=== PATIENT | male | born 1990 | race Caucasian/White ===

== ENCOUNTER 2016-12-20 15:53 | Emergency (ER) | payer OTHER ==
[~2016-12-20] VITALS: Ht 180.3 cm; Wt 77.1 kg
--- NOTE | 2016-12-20 18:10 | ED GENERAL ADULT ---
History of Present Illness General Chief Complaint: General Adult Stated Complaint: ELEVATED BP PER PT Source: patient Exam Limitations: no limitations Vital Signs & Intake/Output Vital Signs & Intake/Output Vital Signs Date Time Temp Pulse Resp B/P Pulse O2 O2 Flow FiO2 Ox Delivery Rate 12/20 1600 98.0 84 20 143/92 100 Room Air Allergies Coded Allergies: No Known Allergies (12/20/16) Triage Note: PT TO ED C/O WEAKNESS, HEADACHE, ANXIETY X 1 WEEK. STATES HE CHECKED HIS BP IN HIS LEGS AT WORK AND IT WAS 200/160. ALSO STATES "I CAN BARELY FEEL THE PULSE IN MY LEFT LEG". HAS APPT ON 12/23 WITH HIS PCP BUT COULDN'T WAIT. CURRENT BP IN RIGHT ARM 143/92. Triage Nurses Notes Reviewed? yes Onset: Abrupt Duration: day(s):, constant Timing: recent history Injury Environment: home Severity: moderate, severe No Modifying Factors: none HPI: 26-year-old male comes into the emergency room with multiple complaints. Patient reports that for couple years he's been experiencing pain in his lower legs in the calfs bilaterally. Pain is worse with any type of walking. Patient reports that he has had increased pain in his feet and legs bilaterally. Patient reports he's been getting associated numbness in his feet bilaterally. Patient reports that she's also been having headaches recently with some ringing in his left ear. Patient reports that he feels like his vision is staticy. Patient reports that he saw the eye doctor the other day but everything was fine. Patient has an appointment with his primary care this Monday. Patient came in is because he was concerned about the worsening pain and numbness in his feet bilaterally. Patient reports that his feet get cold. Patient reports that his father has some type of genetic disorder that puts them at increased risk for stroke. Patient denies any chest pain or shortness of breath. The symptoms of lower extremities is been a chronic issue for years but got worse this past week which is why he came into the emergency room for further evaluation. Patient reports that he has had chronic pain in his left lateral thigh since he was 13 years old. (NELSY SPENCER) Past History Travel History Traveled to [place] past 21 day No Medical History Any Pertinent Medical History? none Surgical History Surgical History: non-contributory Psychosocial History What is your primary language Polish Tobacco Use: Never used ETOH Use: denies use Illicit Drug Use: marijuana Family History Hx Contributory? No (NELSY SPENCER) Review of Systems Review of Systems Constitutional: Reports: no symptoms. EENTM: Reports: no symptoms. Respiratory: Reports: no symptoms. Cardiovascular: Reports: no symptoms. GI: Reports: no symptoms. Genitourinary: Reports: no symptoms. Musculoskeletal: Reports: see HPI. Skin: Reports: no symptoms. Neurological/Psychological: Reports: see HPI. Hematologic/Endocrine: Reports: no symptoms. Immunologic/Allergic: Reports: no symptoms. All Other Systems: Reviewed and Negative (NELSY SPENCER) Physical Exam Physical Exam General Appearance: well developed/nourished, no apparent distress, alert Head: atraumatic, normal appearance Eyes: Bilateral: normal appearance, PERRL, EOMI. Ears, Nose, Throat: normal pharynx, normal ENT inspection, hearing grossly normal Neck: normal inspection, supple, full range of motion Respiratory: normal breath sounds, chest non-tender, no respiratory distress Cardiovascular: regular rate/rhythm Gastrointestinal: normal bowel sounds, soft Back: normal inspection Extremities: normal inspection, normal range of motion, dorsalis pedis 2+ bilaterally, posterior tibialis 1+ bilaterally, cap refill less than 2 seconds, motor strength intact Neurologic/Psych: no motor/sensory deficits, awake, alert, oriented x 3, normal gait, normal mood/affect, 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 No CVA/TIA Diagnosis: No Severe Sepsis Present: No Septic Shock Present: No (NELSY SPENCER) Progress Differential Diagnoses I considered the following diagnoses in my evaluation of the patient: Arterial occlusion, venous stasis, peripheral neuropathy, myalgia paresthetica, lumbar herniated disc, migraine headache, intracranial bleed, subarachnoid hemorrhage, tension headache, cluster headache, autoimmune disorder, genetic disease, peripheral vascular disease, electrolyte abnormality, Plan of Care: Orders Procedure Date/time Status MAGNESIUM 12/20 1802 Complete COMPREHENSIVE METABOLIC PANEL 12/20 1802 Complete CBC WITHOUT DIFFERENTIAL 12/20 1802 Complete Laboratory Tests 12/20/16 1837: Anion Gap 9, Estimated GFR > 60, BUN/Creatinine Ratio 15.0, Glucose 88, Calcium 9.3, Magnesium 1.8, Total Bilirubin 0.8, AST 25, ALT 39, Alkaline Phosphatase 62 , Total Protein 7.4, Albumin 4.4, Globulin 3.0, Albumin/Globulin Ratio 1.5, CBC w Diff NO MAN DIFF REQ, RBC 4.86, MCV 85.6, MCH 29.0, RDW 13.2, MPV 7.8, Gran % 59.8, Lymphocytes % 30.6, Monocytes % 7.5, Eosinophils % 1.5, Basophils % 0.6, Absolute Granulocytes 4.5, Absolute Lymphocytes 2.3, Absolute Monocytes 0.6, Absolute Eosinophils 0.1, Absolute Basophils 0, PUBS MCHC 33.9 Initial ED EKG: none (IVON HOLLINS,NELSY) Departure Departure Disposition: HOME OR SELF CARE Condition: Stable Clinical Impression Primary Impression: Bilateral leg pain Secondary Impressions: Headache Referrals: EVANS PERALTA,PERFECTO LORENZO MD,ORALIA Orourke (PCP/Family) SAMUEL JORDAN MD Additional Instructions: Follow-up with vascular doctor and neurologist provided. Return to emergency room immediately if any other concerns worsening symptoms. You will require nerve conduction study of the lower extremities as well as arterial Dopplers at some point if symptoms persist. Please return immediately if any concerns worsening symptoms. Please go over all results of today's visit with your primary care doctor. Contact your primary care doctor to let them know you were here in the emergency room. There may be nonspecific findings which may not be related to your visit today here in the emergency room but may require further evaluation and chronic monitoring by your primary care doctor. If you had a laceration today the chance of foreign body always remains. You should follow-up with your primary care doctor for recheck in 3-5 days for a wound check. If you had an x-ray done there is a chance that a fracture could have been missed on initial read and you should follow-up with your primary care doctor for repeat x-rays if symptoms persist. If your blood pressure was elevated here in the emergency room please have rechecked by her primary care doctor within the next 48 hours by your primary care doctor. If you were prescribed a narcotic here in the emergency room or any type of controlled substances you're not allowed to drive while taking this medication or operate any type of heavy machinery. Narcotics can make you feel lightheaded dizziness nausea and can cause constipation. You may need to greens picker a stool softener. Thank you for choosing [facility] emergency room. Please return to the emergency room immediately if you have any other concerns worsening of symptoms. Departure Forms: Customer Survey General Discharge Information Comments 12/20/2016 7:26:04 PM Patient has multiple complaints here in the emergency room. I offered him a full evaluation which would include CT scan of head and peripheral artery Dopplers and lower extremities as well as blood work. I explained to the patient at this time I do not feel it is emergent that the patient have a doctor but offered it as a further evaluation tonight. Follow-up with vascular doctor and neurologist provided as well as his primary care doctor for further testing. Patient is to return immediately if any concerns worsening symptoms. Patient has clinically look well and is in no apparent distress here in the emergency room. Normal neurological exam. Patient understands everything has been explained to him. (NELSY SPENCER) PA/SLIP BOX CHANGER Co-Sign Statement Statement: ED Attending supervision documentation- [] I saw and evaluated the patient. I have also reviewed all the pertinent lab results and diagnostic results. I agree with the findings and the plan of care as documented in the PA's/SLIP BOX CHANGER's documentation. x I have reviewed the ED Record and agree with the PA's/SLIP BOX CHANGER's documentation. [] Additions or exceptions (if any) to the PAs/SLIP BOX CHANGER's note and plan are summarized below: [] (ODELL PERALTA,BERTRAND) Critical Care Note Critical Care Note Critical Care Time: non-applicable (NELSY SPENCER)
[2016-12-20 18:45] LABS: ABSOLUTE BASOPHIL COUNT 0 /CUMM (0.0-0.2); ABSOLUTE EOSINOPHIL COUNT 0.1 /CUMM (0.0-0.7); ABSOLUTE GRANULOCYTE CT 4.5 /CUMM (1.4-6.5); ABSOLUTE LYMPH COUNT 2.3 /CUMM (1.2-3.4); ABSOLUTE MONOCYTE COUNT 0.6 /CUMM (0.10-0.60); BASOPHIL % 0.6 % (0.0-2.0); EOSINOPHIL % 1.5 % (0-5); GRANULOCYTE % 59.8 % (42.2-75.2); HEMATOCRIT 41.6 % (42-52); MEAN CORPUSCULAR HGB CONC 33.9 G/DL (33.0-37.0); MEAN CORPUSCULAR VOLUME 85.6 FL (80.0-94.0); MEAN PLATELET VOLUME 7.8 FL (7.4-10.4); PLATELET COUNT 232 /CUMM (130-400); RBC DISTRIBUTION WIDTH 13.2 % (11.5-14.5); RED BLOOD CELL CT 4.86 /CUMM (4.70-6.10); WHITE BLOOD CELL COUNT 7.5 /CUMM (4.8-10.8)
[2016-12-20 19:32] VITALS: BP 132/78
== END 2016-12-20 19:34 ==
LOC: ERH 15:53
PROVIDERS: Physician Assistant Medical
DX: M79.604 Pain in right leg (principal); M79.605 Pain in left leg; R51 Headache